=== PATIENT | male | born 1985 | race Caucasian/White ===

== ENCOUNTER 2023-08-29 08:00 | Emergency (ER) | payer MEDICAID ==
[~2023-08-29] VITALS: Ht 165.1 cm; Wt 72.6 kg
[2023-08-29] MEDS ORDERED: LIDOCAINE 2%-EPI 1:100,000 20 ML VIAL IJ ONE (08:15)
[2023-08-29] MEDS ORDERED: LIDOCAINE 2%-EPI 1:100,000 20 ML VIAL ONE (08:41)
[2023-08-29] MEDS ORDERED: BACITRACIN ZINC OINT 15 GM TUBE TOP ONE (09:30)
[2023-08-29] MEDS ORDERED: BACITRACIN ZINC OINT 15 GM TUBE ONE (09:33)
[2023-08-29] MEDS ORDERED: CEPH750C6 PO (09:42)
[2023-08-29 09:57] VITALS: BP 120/80; TEMP 97; O2SAT 99
== END 2023-08-29 09:58 | disposition home or self-care (01) ==
LOC: ER 08:07
DX: S61.012A Laceration without foreign body of left thumb without damage to nail, initial encounter (principal); K21.9 Gastro-esophageal reflux disease without esophagitis; Z79.899 Other long term (current) drug therapy; W26.8XXA Contact with other sharp object(s), not elsewhere classified, initial encounter; Y93.89 Activity, other specified; Y92.89 Other specified places as the place of occurrence of the external cause; Y99.8 Other external cause status
CPT/HCPCS: A4606; A4663

== ENCOUNTER 2023-09-03 07:45 | Emergency (ER) | payer MEDICAID ==
[~2023-09-03] VITALS: Ht 165.1 cm; Wt 72.6 kg
[~2023-09-03 07:45] MED LIST: CEPH750C6 PO
[2023-09-03] MEDS ORDERED: CEFTRIAXONE 2 G in IV DEXTROSE 5% 100 ML IV ONE (08:15)
[2023-09-03 08:38] LABS: BASOPHILS # (AUTO) 0.1 K/UL (0.0-0.2); BASOPHILS % (AUTO) 0.5 % (0.0-2.0); EOSINOPHILS # (AUTO) 0.1 K/uL (0.0-0.7); EOSINOPHILS % (AUTO) 0.9 % (0.0-7.0); HEMOGLOBIN 14.2 g/dL (12.5-16.3); LYMPHOCYTES # (AUTO) 2.5 K/uL (0.8-4.8); MEAN CORPUSCULAR HEMOGLOBIN 30.3 uug (23.8-33.4); MEAN CORPUSCULAR HGB CONC 34 g/dL (32.5-36.3); MEAN CORPUSCULAR VOLUME 89.8 fL (73.0-96.2); MONOCYTES # (AUTO) 0.9 K/uL (0.1-1.30); MONOCYTES % (AUTO) 8.5 % (0.0-11.0); NEUTROPHILS # (AUTO) 7.3 K/uL (1.8-8.9); NEUTROPHILS % (AUTO) 67.1 % (38.5-71.5); PLATELET COUNT (AUTO) 246 K/uL (152-348); RED BLOOD CELL COUNT(AUTO) 4.68 MIL/uL (4.06-5.63); RED CELL DISTRIBUTION WIDTH 13.6 % (12.1-16.2); WHITE BLOOD COUNT (AUTO) 10.9 K/uL (3.6-10.2)
[2023-09-03] MEDS ORDERED: CEFTRIAXONE /D5W 50ML IVPB **ER PYXIS IV ONE (08:39)
[2023-09-03 08:48] LABS: DIFFERENTIAL COMMENT 1
[2023-09-03 08:50] LABS: CALCIUM 9.2 mg/dL (8.5-10.1); CREATININE 0.7 mg/dL (0.6-1.3); POTASSIUM 3.5 mmol/L (3.5-5.1)
[2023-09-03] MEDS ORDERED: SULF1TAB48 PO (09:40)
[2023-09-03 11:00] VITALS: BP 148/79; O2SAT 100
== END 2023-09-03 09:30 | disposition home or self-care (01) ==
LOC: ER 07:45
DX: S61.112D Laceration without foreign body of left thumb with damage to nail, subsequent encounter (principal); L08.9 Local infection of the skin and subcutaneous tissue, unspecified; K21.9 Gastro-esophageal reflux disease without esophagitis; F17.210 Nicotine dependence, cigarettes, uncomplicated; Z79.899 Other long term (current) drug therapy; X58.XXXD Exposure to other specified factors, subsequent encounter
CPT/HCPCS: 99284; 96365; 80048; 85025; 36415; J0696 ×2; A4606; A4663